=== PATIENT | female | born 1990 | race Caucasian/White ===

== ENCOUNTER 2018-11-08 06:42 | Inpatient (IN) ==
[2018-11-08] MEDS ORDERED: D5 1/2 NS 1000 ML 1,000 ML IV SCH ×2 (07:00→08:00)
[2018-11-08 07:07] LABS: BILIRUBIN,URINE NEGATIVE (NEGATIVE); BLOOD/HEMOGLOBIN,URINE 4+ (NEGATIVE); GLUCOSE, URINE NEGATIVE (NEGATIVE); KETONES,URINE 2+ (NEGATIVE); LEUKOCYTE ESTERASE ,URINE 3+ (NEGATIVE); NITRITES,URINE NEGATIVE (NEGATIVE); PROTEIN,URINE 2+ (NEGATIVE); UROBILINOGEN,URINE NORMAL (NORMAL)
[2018-11-08 07:09] VITALS: BMI 30.6
[2018-11-08 07:14] LABS: APPEARANCE,URINE HAZY (CLEAR); COLOR,URINE YELLOW (YELLOW)
[2018-11-08 07:15] LABS: SQUAMOUS EPITHELIAL CELL,UR MODERATE /HPF (NEGATIVE)
[2018-11-08 07:15] LABS: AMNISURE ROM TEST THERE IS A RUPTURE (NO RUPTURE)
[2018-11-08 07:16] LABS: BASOPHILS # (AUTO) 0.1 X10^3/uL (0.0-0.1); BASOPHILS % (AUTO) 0.4 % (0.2-1.0); HEMATOCRIT 33.8 % (36.0-47.0); HEMOGLOBIN 11.4 g/dL (12.0-16.0); LYMPHOCYTES # (AUTO) 1.6 X10^3/uL (1.3-2.9); LYMPHOCYTES % (AUTO) 5.5 % (21.0-51.0); MEAN CORPUSCULAR HEMOGLOBIN 30.5 pg (27.0-34.0); MEAN CORPUSCULAR HGB CONC 33.8 g/dL (33.0-35.0); MEAN CORPUSCULAR VOLUME 90.4 fL (80.0-100.0); MEAN PLATELET VOLUME 6.9 fL (7.4-11.0); MONOCYTES # (AUTO) 2.1 x10^3/uL (0.3-0.8); MONOCYTES % (AUTO) 7.3 % (0.0-13.0); NEUTROPHILS # (AUTO) 24.4 x10^3/uL (2.2-4.8); NEUTROPHILS % (AUTO) 86.8 % (42.0-75.0); PLATELET COUNT 409 X10^3/uL (150.0-450.0); RED BLOOD COUNT 3.74 X10^6/uL (3.5-5.4); RED CELL DISTRIBUTION WIDTH 14.7 % (11.6-16.5); WHITE BLOOD COUNT 28.1 X10^3/uL (3.6-10.0)
[2018-11-08 07:16] LABS: BACTERIA,URINE NEGATIVE /HPF (NEGATIVE)
[2018-11-08] MEDS ORDERED: NUBAIN INJ 10 ONE (07:22)
[2018-11-08 07:25] LABS: ALANINE AMINOTRANSFERASE 8 Units/L (12-78); ALBUMIN 2.7 g/dL (3.4-5.0); ALKALINE PHOSPHATASE 143 Units/L (46-116); ASPARTATE AMINO TRANSFERASE 19 Units/L (15-37); BLOOD UREA NITROGEN 11 mg/dL (7-18); CALCIUM 9.3 mg/dL (8.5-10.1); CARBON DIOXIDE 17.8 mmol/L (21-32); CHLORIDE 100 mmol/L (98-107); COR CA(FOR HYPOALB) 10.3 mg/dL (8.5-10.1); CREATININE 1.12 mg/dL (0.55-1.02); SODIUM 134 mmol/L (136-145); TOTAL PROTEIN 7.8 g/dL (6.4-8.2); eGFR NON BLACK RACES > 60 (>60)
[2018-11-08] MEDS ORDERED: NUBAIN INJ 200 MG VIAL MULTIDOSE IVP PRN (07:27)
[2018-11-08] MEDS ORDERED: D5LR 1L W PITOCIN 10 UNITS/L 10 UNITS/1,000 ML BAG IV PRN (07:27)
[2018-11-08] MEDS ORDERED: PITOCIN IVP ONE (07:27)
[2018-11-08 07:36] LABS: PLATELET MORPHOLOGY COMMENT NORMAL (NORMAL)
[2018-11-08] MEDS ORDERED: LR 1000 ML IV 1,000 ML ONE ×3 (08:11→16:36)
[2018-11-08] MEDS ORDERED: PITOCIN ONE (08:11)
[2018-11-08] MEDS ORDERED: D5LR 1L W PITOCIN 10 UNITS/L 10 UNITS/1,000 ML BAG IV ONE (08:11)
[2018-11-08] MEDS ORDERED: NAROPIN EPIDURAL 0.2% + FENTANYL 90MCG 60 ML EPI ONE ×2 (08:12→14:45)
[2018-11-08] MEDS ORDERED: FENTANYL INJ 100 mcg ONE (08:12)
--- NOTE | 2018-11-08 12:15 | DR.OB ---
OB Quick Note - Assessment/Plan Assessment/Plan: L&D 11/08/18 at 12:00pm Pitocin=2mu/min. S-No complaint. Episode of lates--resolved with pit. off. O-Afebrile,VSS PUX=356 with good LTV, +accel, no decel. CTX=q 1 1/2 to 2 min., about 35-55mmHg CVX=3cm/90%/-1/VTX A-IUP at 38 3/7 weeks in labor with SROM GERD P-Cont. pitocin induction Anticipate
[2018-11-08] MEDS ORDERED: TYLENOL 325 MG TAB PO ONE (14:17)
[2018-11-08] MEDS ORDERED: ANCEF 1 GRAM IV PREMIX* 1 G/50 ML BAG IV ONE (14:17)
[2018-11-08] MEDS: ANCEF VIAL 1 GRAM IVP SCH ×2 (14:20→22:10)
[2018-11-08] MEDS ORDERED: DILAUDID INJ ONE (15:33)
[2018-11-08] MEDS ORDERED: XYLOCAINE 2% and EPINEPHRINE 1:100,000 ONE (15:33)
[2018-11-08] MEDS ORDERED: VERSED ONE (15:43)
[2018-11-08] MEDS ORDERED: DIPRIVAN VIAL ONE (15:43)
[2018-11-08] MEDS ORDERED: EPHEDRINE SULFATE INJ ONE (15:43)
[2018-11-08] MEDS ORDERED: ZOFRAN INJ 4 MG VIAL IVP PRN ×2 (16:09→17:50)
[2018-11-08] MEDS ORDERED: DILAUDID INJ IVP PRN (16:09)
[2018-11-08] MEDS ORDERED: BENADRYL INJ 50 MG VIAL IVP PRN (16:09)
[2018-11-08] MEDS ORDERED: PHENERGAN INJ 25 MG IM PRN (16:09)
[2018-11-08] MEDS ORDERED: REGLAN INJ 10 MG VIAL IVP PRN ×2 (16:09→17:50)
[2018-11-08] MEDS ORDERED: D5 1/2 NS 1L W PITOCIN 20 UNITS/L 20 UNITS/1,000 ML BAG IV ONE (16:36)
[2018-11-08] MEDS ORDERED: PERCOCET TAB 5/325 MG PO PRN (17:50)
[2018-11-08] MEDS ORDERED: NARCAN INJ IVP PRN (17:50)
[2018-11-08] MEDS ORDERED: ADACEL or BOOSTRIX TDaP VACCINE IM ONE (17:50)
[2018-11-08] MEDS ORDERED: D5 1/2 NS 1000 ML 1,000 ML with PITOCIN 20 UNITS IV SCH ×2 (18:00)
[2018-11-08] MEDS: TORADOL 30 MG VIAL IVP PRN (20:10)
[2018-11-08] MEDS: BENADRYL INJ 50 MG VIAL IVP PRN (21:17)
[2018-11-08] MEDS ORDERED: ANCEF VIAL 1 GRAM IVP SCH (22:00)
[2018-11-08] MEDS: ZANTAC PO SCH (22:21)
[2018-11-09] MEDS: TORADOL 30 MG VIAL IVP PRN (01:31)
[2018-11-09 04:18] LABS: HEMATOCRIT 22.6 % (36.0-47.0)
[2018-11-09 04:21] LABS: HEMOGLOBIN 7.8 g/dL (12.0-16.0)
[2018-11-09] MEDS: ANCEF VIAL 1 GRAM IVP SCH ×3 (06:15→22:06)
[2018-11-09] MEDS: PRENATAL PLUS PO SCH (08:03)
[2018-11-09] MEDS: MOTRIN TAB 800 MG PO PRN ×2 (08:03→17:04)
[2018-11-09] MEDS: MYLICON TAB 80 MG CHEW PO PRN ×2 (08:03→22:06)
[2018-11-09] MEDS: COLACE CAP 100 MG PO SCH ×2 (08:04→22:06)
[2018-11-09] MEDS: ZANTAC PO SCH ×2 (08:04→22:06)
[2018-11-09] MEDS ORDERED: NS 250 ML IV 250 ML IV SCH (13:00)
[2018-11-09] MEDS ORDERED: NS 250 ML IV 250 ML ONE (13:06)
[2018-11-09] MEDS: BACTROBAN CREAM TOP SCH (13:40)
[2018-11-09] MEDS: FERROUS GLUCONATE PO SCH (16:32)
[2018-11-09] MEDS: PERCOCET TAB 5/325 MG PO PRN ×2 (18:13→22:02)
[2018-11-09] MEDS: BENADRYL INJ 50 MG VIAL IVP PRN (18:14)
[2018-11-10] MEDS: BACTROBAN CREAM TOP SCH ×2 (00:05→05:40)
[2018-11-10] MEDS: ANCEF VIAL 1 GRAM IVP SCH (05:40)
[2018-11-10] MEDS: PERCOCET TAB 5/325 MG PO PRN ×2 (05:42→10:03)
[2018-11-10] MEDS: FERROUS GLUCONATE PO SCH (06:27)
[2018-11-10] MEDS: PRENATAL PLUS PO SCH (09:50)
[2018-11-10] MEDS: MYLICON TAB 80 MG CHEW PO PRN (09:50)
[2018-11-10] MEDS: ZANTAC PO SCH (09:51)
[2018-11-10] MEDS: COLACE CAP 100 MG PO SCH (09:51)
[2018-11-10 12:02] VITALS: BP 121/66
== END 2018-11-10 12:02 | disposition home or self-care (01) | DRG 786 ==
LOC: ER 06:43 → LD 07:06 → MED/SURG 17:51
PROVIDERS: ADMIT Specialist; ATTEND Specialist
DX: O99.613 Diseases of the digestive system complicating pregnancy, third trimester; O77.8 Labor and delivery complicated by other evidence of fetal stress; Z37.0 Single live birth; Z3A.38 38 weeks gestation of pregnancy; O41.1230 Chorioamnionitis, third trimester, not applicable or unspecified
CPT/HCPCS: 36415; 80053; 81001; 84112; 85014; 85018; 85025; 86592; 86850; 86900; 86901; 96365; 96374; 99284; A4216; A4222; S0197; J0690; J1170; J1200; J1885; J2001; J2250; J2300; J2590; J2704; J3010; J3490; J7120; S5010